=== PATIENT | female | born 1950 | race Caucasian/White ===

== ENCOUNTER → 2020-11-17 | Outpatient (CLI) | payer MEDICARE | LOC: EXRD 14:49 | DX: M15.4 Erosive (osteo)arthritis (principal); M06.9 Rheumatoid arthritis, unspecified | CPT/HCPCS: 73130 ==

== ENCOUNTER → 2021-01-12 | Outpatient (CLI) | payer MEDICARE | LOC: EXRD 01-10 10:30 | DX: M81.0 Age-related osteoporosis without current pathological fracture (principal) | CPT/HCPCS: 77080 ==